=== PATIENT | male | born 1955 | race Caucasian/White ===

== ENCOUNTER → 2016-12-19 09:30 | Outpatient (CLI) | payer MEDICARE, OTHER ==
[2011-12-11 14:37] VITALS: BMI 27.9
== END | disposition home or self-care (01) ==
LOC: D.RAD 09:30
DX: K21.9 Gastro-esophageal reflux disease without esophagitis (principal); R13.10 Dysphagia, unspecified

== ENCOUNTER → 2017-03-17 08:54 | Outpatient (CLI) | payer MEDICARE, OTHER ==
[2011-12-11 14:37] VITALS: BMI 27.9
== END | disposition home or self-care (01) ==
LOC: D.CT 08:54
DX: R10.9 Unspecified abdominal pain (principal)

== ENCOUNTER → 2017-08-24 12:39 | Outpatient (CLI) | payer MEDICARE, OTHER ==
[2011-12-11 14:37] VITALS: BMI 27.9
[2017-08-24 13:23] LABS: BASOPHILS 0.4 % (0-2); EOSINOPHILS 1.1 % (0-7); HEMATOCRIT 40.6 % (42.0-54.0); HEMOGLOBIN 14.2 g/dL (13.5-17.5); IMMATURE GRANULOCYTES 0.2 % (0-5); LYMPHOCYTES 36.2 % (15-50); MCH 31.3 pg (26.0-34.0); MCV 89.4 fL (80.0-100.0); MEAN PLATELET VOLUME 9.5 fL (7.4-10.4); MONOCYTES 10.8 % (2-11); NEUTROPHILS 51.3 % (40-80); PLATELET COUNT 178 10x3/uL (130-400); RBC 4.54 10x6/uL (4.20-6.10); RDW 13.1 % (11.5-14.5); WBC 5.5 10x3/uL (4.8-10.8)
== END | disposition home or self-care (01) ==
LOC: D.RT 12:39
PROVIDERS: Orthopaedic Surgery
DX: Z01.812 Encounter for preprocedural laboratory examination (principal)

== ENCOUNTER → 2017-09-14 14:08 | Outpatient (CLI) | payer MEDICARE, OTHER ==
[2011-12-11 14:37] VITALS: BMI 27.9
== END | disposition home or self-care (01) ==
LOC: D.MRI 14:08
DX: M54.16 Radiculopathy, lumbar region (principal)

== ENCOUNTER → 2017-09-16 08:12 | Outpatient (CLI) | payer MEDICARE, OTHER ==
[2011-12-11 14:37] VITALS: BMI 27.9
[2017-09-16 09:18] LABS: ALBUMIN 3.7 g/dL (3.4-5.0); BILIRUBIN - DIRECT 0.06 mg/dL (0.00-0.30); BILIRUBIN - INDIRECT 0.29 mg/dL (0.00-1.00); BILIRUBIN - TOTAL 0.35 mg/dL (0.2-1.3); PROTEIN - SERUM 7.1 g/dL (6.4-8.2)
== END | disposition home or self-care (01) ==
LOC: D.US 08:12
PROVIDERS: Internal Medicine Gastroenterology
DX: K76.0 Fatty (change of) liver, not elsewhere classified (principal)

== ENCOUNTER 2017-10-30 10:14 | Emergency (ER) | payer MEDICARE, OTHER ==
[2011-12-11 14:37] VITALS: BMI 27.9
== END 2017-10-30 11:17 | disposition home or self-care (01) ==
LOC: D.ER 10:14
DX: S89.92XA Unspecified injury of left lower leg, initial encounter (principal); W19.XXXA Unspecified fall, initial encounter; Y93.89 Activity, other specified; Y92.019 Unspecified place in single-family (private) house as the place of occurrence of the external cause

== ENCOUNTER 2018-03-01 07:07 | Day surgery (SDC) | payer MEDICARE, OTHER ==
[~2018-03-01] VITALS: Ht 180.3 cm; Wt 99.8 kg
--- NOTE | ~2018-03-01 | OP ---
PATIENT NAME: LILIBETH JAIMES MEDICAL RECORD: [id number] :57 LOCATION:[facility] ADMISSION DATE: SURGEON: LILIBETH ABURTO MD DATE OF OPERATION: 03/01/2018 PREOPERATIVE DIAGNOSIS: Complex medial meniscus tear of the left knee. POSTOPERATIVE DIAGNOSIS: Complex medial meniscus tear of the left knee. PROCEDURE: Medial meniscal repair of the left knee. SURGEON: Lilibeth Aburto MD ANESTHESIA: General. INTRAOPERATIVE COMPLICATIONS: None. 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 There was early extrusion of the meniscus. This was repaired back to the root on the posterolateral aspect of the medial tibial plateau. OPERATIVE SUMMARY IN DETAIL: After obtaining the appropriate preoperative orthopedic surgery consent as well as anesthesia consultation, evaluation, and clearance, the patient was brought to the operating room and placed on the operating table in supine position. After general laryngeal mask airway was administered, tourniquet was placed on the proximal aspect of the left lower extremity. Left lower extremity was then prepped and draped in routine sterile fashion. The leg was elevated and exsanguinated and the tourniquet was inflated to 350 mmHg. Routine inferolateral portal was established followed by superomedial and inferomedial portal. Diagnostic arthroscopy did reveal the above findings. Portions of tears more medially were trimmed back with the meniscotome and resector. At this point, the reverse cutting drill was used with the meniscal root repair guide to create a socket at the posterior lateral aspect of the medial tibial plateau. Nitinol wire was then passed through this and out the PassPort cannula for later shuttle relaying. At this point, the meniscal Scorpion was utilized to pass a coreless FiberLoop on the edge of the meniscal root. This was then passed using the nitinol passing wire out the very small tibial tunnel, which was then anchored with a 4.75 SwiveLock in the anterior medial aspect of the tibial plateau. Having completed this, the knee was insufflated with 30 cc of 0.25% Marcaine with epinephrine and 80 mg of Depo-Medrol. Arthroscopy portals closed in routine interrupted fashion using 4-0 Prolene. Sterile dressings were applied. The patient was awakened, taken to recovery in stable condition. All final needle and sponge counts were correct. TRANSINT:[id number] Voice Confirmation ID: [id number] DOCUMENT ID: [id number] OPERATIVE REPORT [id number] LILIBETH JAIMES MD, LILIBETH ELLIS at 1657 CC: [id number] DICTATION DATE: 03/01/18 1124 MEDICAL TRANSPORT SPECIALIST: 03/01/18 1258 [facility] SDC 03/01/18 [place] [id number]
[~2018-03-01 07:07] MED LIST: PROTONIX40 MG PO
[2018-03-01 08:05] VITALS: BP 151/86; Ht 180.3 cm; Wt 99.8 kg
[2018-03-01] MEDS ORDERED: HYDROCODONE-APA1 TAB PO (11:18)
== END 2018-03-01 14:23 | disposition home or self-care (01) ==
LOC: D.OPS 07:07 → D.PAN 09:00 → D.OPS 09:35 → D.PAN 12:30 → D.OPS 12:30
DX: S83.232A Complex tear of medial meniscus, current injury, left knee, initial encounter (principal); K21.9 Gastro-esophageal reflux disease without esophagitis; M25.562 Pain in left knee; Z01.812 Encounter for preprocedural laboratory examination

== ENCOUNTER 2018-03-04 20:11 | Emergency (ER) | payer MEDICARE, OTHER ==
[2018-03-01 08:05] VITALS: BMI 30.7
[~2018-03-04 20:11] MED LIST changes: +HYDROCODONE-APA1 TAB PO
== END 2018-03-04 22:39 | disposition home or self-care (01) ==
LOC: D.ER 20:11
DX: K59.00 Constipation, unspecified (principal); T50.905A Adverse effect of unspecified drugs, medicaments and biological substances, initial encounter; Y92.019 Unspecified place in single-family (private) house as the place of occurrence of the external cause

== ENCOUNTER → 2018-04-02 08:12 | Outpatient (CLI) | payer MEDICARE, OTHER ==
[2018-03-01 08:05] VITALS: BMI 30.7
== END | disposition home or self-care (01) ==
LOC: D.US 03-16 09:00 → D.LAB 03-16 09:30 → D.US 08:12
DX: K76.0 Fatty (change of) liver, not elsewhere classified (principal)

== ENCOUNTER → 2018-08-12 10:07 | Outpatient (CLI) | payer MEDICARE, OTHER ==
[2018-03-01 08:05] VITALS: BMI 30.7
== END | disposition home or self-care (01) ==
LOC: D.MRI 10:07
DX: M25.562 Pain in left knee (principal)

== ENCOUNTER 2018-10-20 12:52 | Inpatient (IN) | payer MEDICARE, OTHER ==
[~2018-10-20] VITALS: Ht 180.3 cm; Wt 95.9 kg
--- NOTE | ~2018-10-20 | MORECARE ---
CASE MANAGEMENT DISCHARGE SUMMARY PATIENT: LILIBETH JAIMES UNIT: [id number] ADM DATE: 10/21/18 AGE: 63 : 57 SEX: M ROOM/BED: D.2210 AUTHOR: MIO,DOC PHYSICIAN: REFERRING PHYSICIAN: VICK LAWS MD DATE OF SERVICE: 10/25/18 Discharge Plan Patient Name: LILIBETH JAIMES Facility: [facility]:[place] : 1955 Planned Disposition: Home Anticipated Discharge Date: Discharge Date: Expected LOS: Initial Reviewer: [email or web address] Initial Review Date: 10/20/2018 Generated: 10/25/18 3:43 pm Comments DCP- Discharge Planning Updated by [email or web address]: Fay Viera on 10/25/18 1:[address] Patient Name: LILIBETH JAIMES Admission Status: ER Accout number: [id number] Admission Date: 10-21-2018 : 1955 Admission Diagnosis:UNSP FRACTURE OF T11-T12 VERTEBRA, INIT FOR CLOS FX Attending: VICK LAWS Current LOS: 4 Anticipated DC Date: Planned Disposition: Home Primary Insurance: MEDICARE A & B Discharge Planning Comments: CM met with patient to assess discharge planning needs. Patient lives independently at home with his and plans to return there when he is discharged, He has a walker, wheelchair, crutchers, shower chair at home. His Abiodun will be the one to take him home when it is time. There is 8 steps in his home. CM will continue to follow and assist with DC planning needs Wet Finisher: Fay Viera DCPIA - Discharge Planning Initial Assessment Updated by [email or web address]: Fay Viera on 10/25/18 2:35 pm * Is the patient Alert and Oriented? Yes * How many steps to enter\exit or inside your home? * PCP CHE * [facility] * Preadmission Environment Home with Family * ADLs Independent * Equipment Crutch Rolling Walker Shower Chair Walker Wheelchair * List name and contact numbers for known caregivers / representatives who currently or will assist patient after discharge: ABIODUN [phone] * Verbal permission to speak to the caregivers and representatives has been obtained from the patient. N/A * Community resources currently utilized None * Additional services required to return to the preadmission environment? Yes * Can the patient safely return to the preadmission environment? Yes * Has this patient been hospitalized within the prior 30 days at any hospital? No Last DP export: 10/25/18 1:32 Patient Name: LILIBETH JAIMES Page 72701 at 1443 All edits/amendments must be made on the electronic document DICTATION DATE: 10/25/181442 CHURCH HISTORY PROFESSOR: JESSICA 10/25/181442 RPT#: [id number] DC DATE: STATUS: ADM IN [facility] [address] [place] [address] END OF REPORT
--- NOTE | ~2018-10-20 | EC ---
PATIENT:LILIBETH JAIMES DATE OF SERVICE: 10/21/18 SEX: M MEDICAL RECORD: [id number] DATE OF : 57 LOCATION:D.[facility] AGE OF PATIENT: 63 ADMISSION DATE: 10/21/18 REFERRING PHYSICIAN: INTERPRETING PHYSICIAN: ANNA LILLY MD ECHOCARDIOGRAM REPORT ECHO CHARGES 4 ECHO COMPLETE Date: 10/26/18 CLINICAL DIAGNOSIS: DVT/PE INTO LUNGS ECHOCARDIOGRAPHIC MEASUREMENTS (adult normal given) AC root (d.<3.7cm) 4.2 cm LV Septum d (<1.2 cm> 1.9 cm Valve Excursion 2.3 cm LV Septum (systole) 2.0 cm Left Atria (s.<4.0cm> 4.0 cm LVPW d(<1.2cm) 1.5 cm RV (d.<2.3cm) 3.9 cm LVPW (sytole) 2.0 cm LV diastole(<5.6CM) 5.1 cm MV E-F(>70mm/sec) cm LV systole 3.7 cm LVOT Diameter 2.1 cm MV exc.(>10mm) 2.1 cm Est.ejection fraction (50-75%) % DOPPLER: LVIT cm/sec A 97.0 cm/sec E 70.0 cm/sec LA cm/sec RVSP 15 mmHg LVOT 101 cm/sec AOP1/2T m/s Asc. Ao 159 cm/sec RVOT 99 cm/sec RA cm/sec PA 121 cm/sec AV Gradient Peak 10.06mmHg AV Mean 5.61 mmHg AV Area 2.1 cm MV Gradient Peak 5.60 mmHg MV Mean 1.53 mmHg MV Area cm COMMENTS: Coal Passer: 2 ALEXUS JIMENEZ Longwall Machine Operator Helper: 1 Dr. Lilly TAPE# PACS Pericardial Effusion N DATE OF SERVICE: FINDINGS: 1. Left ventricular chamber size is within normal limits. Left ventricular systolic function is normal. Overall ejection fraction is estimated at 55%. 2. Left atrium is upper limits of normal at 4.0 cm. Right atrium and right ventricle chamber sizes are mildly dilated. 3. Valvular structures have normal structure and motion. 4. Doppler interrogation reveals no significant valvular insufficiency or stenosis. ECHOCARDIOGRAM REPORT [id number] LILIBETH JAIMES 5. No evidence of pericardial effusion or left ventricular thrombus. 6. No cardiac source of neurologic emboli. TRANSINT:[id number] Voice Confirmation ID: [id number] DOCUMENT ID: [id number] ANNA LILLY MD at 1228 CC: [id number] DICTATION DATE: 10/26/18 1630 TOWER HELPER: 10/26/18 191 ADM IN [facility] [address] [place] [address]
--- NOTE | ~2018-10-20 | MORECARE ---
CASE MANAGEMENT DISCHARGE SUMMARY PATIENT: LILIBETH JAIMES UNIT: [id number] ADM DATE: 10/21/18 AGE: 63 : 57 SEX: M ROOM/BED: D.2210 AUTHOR: ALIYAH LIEBERMAN PHYSICIAN: REFERRING PHYSICIAN: VICK LAWS MD DATE OF SERVICE: 10/28/18 Discharge Plan Patient Name: LILIBETH JAIMES Facility: [facility]:[place] : 1955 Planned Disposition: Home Anticipated Discharge Date: Discharge Date: Expected LOS: Initial Reviewer: [email or web address] Initial Review Date: 10/20/2018 Generated: 10/28/18 5:10 pm Comments DCP- Discharge Planning Updated by [email or web address]: Fay Viera on 10/28/18 1:[address] Spoke with Catie at [facility], she will start the process to try to transfer. DCP- Discharge Planning Updated by [email or web address]: Fay Viera on 10/25/18 1:[address] Patient Name: LILIBETH JAIMES Admission Status: ER Accout number: [id number] Admission Date: 10-21-2018 : 1955 Admission Diagnosis:UNSP FRACTURE OF T11-T12 VERTEBRA, INIT FOR CLOS FX Attending: VICK LAWS Current LOS: 4 Anticipated DC Date: Planned Disposition: Home Primary Insurance: MEDICARE A & B Discharge Planning Comments: CM met with patient to assess discharge planning needs. Patient lives independently at home with his and plans to return there when he is discharged, He has a walker, wheelchair, crutchers, shower chair at home. His Abiodun will be the one to take him home when it is time. There is 8 steps in his home. CM will continue to follow and assist with DC planning needs V Belt Coverer: Fay Viera DCPIA - Discharge Planning Initial Assessment Updated by [email or web address]: Fay Viera on 10/25/18 2:35 pm * Is the patient Alert and Oriented? Yes * How many steps to enter\exit or inside your home? * PCP CHE * Pharmacy [facility] * Preadmission Environment Home with Family * ADLs Independent * Equipment Crutch Rolling Walker Shower Chair Walker Wheelchair * List name and contact numbers for known caregivers / representatives who currently or will assist patient after discharge: ABIODUN [phone] * Verbal permission to speak to the caregivers and representatives has been obtained from the patient. N/A * Community resources currently utilized None * Additional services required to return to the preadmission environment? Yes * Can the patient safely return to the preadmission environment? Yes * Has this patient been hospitalized within the prior 30 days at any hospital? No Last DP export: 10/28/18 1:14 Patient Name: LILIBETH JAIMES Page [id number] at 1611 All edits/amendments must be made on the electronic document DICTATION DATE: 10/28/181609 CLOTH BURLER: JESSICA 10/28/181609 RPT#: [id number] DC DATE: STATUS: ADM IN [facility] [address] [place] [address] END OF REPORT
--- NOTE | ~2018-10-20 | MORECARE ---
CASE MANAGEMENT DISCHARGE SUMMARY PATIENT: LILIBETH JAIMES UNIT: [id number] ADM DATE: 10/21/18 AGE: 63 : 57 SEX: M ROOM/BED: D.2210 AUTHOR: ALIYAH LIEBERMAN PHYSICIAN: REFERRING PHYSICIAN: VICK LAWS MD DATE OF SERVICE: 10/25/18 Discharge Plan Patient Name: LILIBETH JAIMES [facility] [facility] 1955 Planned Disposition: Home Anticipated Discharge Date: Discharge Date: Expected LOS: Initial Reviewer: [email or web address] Initial Review Date: 10/20/2018 Generated: 10/25/18 3:32 pm Last DP export: 10/20/18 1:51 p Patient Name: LILIBETH JAIMES Page 88361 at 1432 All edits/amendments must be made on the electronic document DICTATION DATE: 10/25/18 143 CHIEF TECHNOLOGIST: JESSICA 10/25/18 143 RPT#: [id number] DC DATE: STATUS: ADM IN [facility] [address] [place] [address] END OF REPORT
--- NOTE | ~2018-10-20 | MORECARE ---
CASE MANAGEMENT DISCHARGE SUMMARY PATIENT: LILIBETH JAIMES DUTCH UNIT: [id number] ADM DATE: 10/20/18 AGE: 63 : 57 SEX: M ROOM/BED: D.2210 AUTHOR: ALIYAH LIEBERMAN PHYSICIAN: REFERRING PHYSICIAN: VICK LAWS MD DATE OF SERVICE: 10/20/18 Discharge Plan Patient Name: LILIBETH JAIMES [facility] : 1955 Planned Disposition: Anticipated Discharge Date: Discharge Date: Expected LOS: Initial Reviewer: [email or web address] Initial Review Date: 10/20/2018 Generated: 10/20/18 3:51 pm Patient Name: LILIBETH JAIMES Page 26539 at 1451 All edits/amendments must be made on the electronic document DICTATION DATE: 10/20/181450 ADDRESS CHANGE CLERK: JESSICA 10/20/18 145 RPT#: [id number] DC DATE: STATUS: ADM IN [facility] [address] [place] [address] END OF REPORT
--- NOTE | ~2018-10-20 | MORECARE ---
CASE MANAGEMENT DISCHARGE SUMMARY PATIENT: LILIBETH JAIMES UNIT: [id number] ADM DATE: 10/21/18 AGE: 63 : 57 SEX: M ROOM/BED: D.2210 AUTHOR: ALIYAH LIEBERMAN PHYSICIAN: REFERRING PHYSICIAN: VICK LAWS MD DATE OF SERVICE: 10/29/18 Discharge Plan Patient Name: LILIBETH JAIMES Facility: [facility]:[place] : 1955 Planned Disposition: Home Anticipated Discharge Date: Discharge Date: Expected LOS: Initial Reviewer: [email or web address] Initial Review Date: 10/20/2018 Generated: 10/29/18 3:57 pm Comments DCP- Discharge Planning Updated by [email or web address]: Fay Viera on 10/29/18 1:[address] Finney, the patient has been accepted to [facility]. Dr Don is the accepting MD. [facility] served. CM will continue to follow and assist with DC planning as needed. at bedside DCP- Discharge Planning Updated by [email or web address]: Fay Viera on 10/29/18 6:[address] RECEIVED A MESSAGE FROM CATIE AT THE TRANSFER CENTER AND SHE STATED THAT THEY HAD AN ACCEPTING PHYSICAN, BUT NOT A BED. SHE WILL LET ME KNOW WHEN THERE IS A BED AVAILABLE. INFORMED PATIENT OF ABOVE. CM TO FOLLOW DCP- Discharge Planning Updated by [email or web address]: Fay Viera on 10/28/18 1:[address] Spoke with Catie at [facility], she will start the process to try to transfer. DCP- Discharge Planning Updated by [email or web address]: Fay Viera on 10/25/18 1:[address] Patient Name: LILIBETH JAIMES Admission Status: ER Accout number: [id number] Admission Date: 10-21-2018 : 1955 Admission Diagnosis:UNSP FRACTURE OF T11-T12 VERTEBRA, INIT FOR CLOS FX Attending: VICK LAWS Current LOS: 4 Anticipated DC Date: Planned Disposition: Home Primary Insurance: MEDICARE A & B Discharge Planning Comments: CM met with patient to assess discharge planning needs. Patient lives independently at home with his and plans to return there when he is discharged, He has a walker, wheelchair, crutchers, shower chair at home. His Abiodun will be the one to take him home when it is time. There is 8 steps in his home. CM will continue to follow and assist with DC planning needs Culture Media Laboratory Assistant: Fay Viera DCPIA - Discharge Planning Initial Assessment Updated by [email or web address]: Fay Viera on 10/25/18 2:35 pm * Is the patient Alert and Oriented? Yes * How many steps to enter\exit or inside your home? * PCP CHE * Pharmacy [facility] * Preadmission Environment Home with Family * ADLs Independent * Equipment Crutch Rolling Walker Shower Chair Walker Wheelchair * List name and contact numbers for known caregivers / representatives who currently or will assist patient after discharge: ABIODUN [phone] * Verbal permission to speak to the caregivers and representatives has been obtained from the patient. N/A * Community resources currently utilized None * Additional services required to return to the preadmission environment? Yes * Can the patient safely return to the preadmission environment? Yes * Has this patient been hospitalized within the prior 30 days at any hospital? No Last DP export: 10/29/18 6:41 Patient Name: LILIBETH JAIMES Page 53418 at 1458 All edits/amendments must be made on the electronic document DICTATION DATE: 10/29/181456 SNOW RANGER: JESSICA 10/29/181456 RPT#: [id number] DC DATE: STATUS: ADM IN [facility] [address] [place] [address] END OF REPORT
--- NOTE | ~2018-10-20 | MORECARE ---
CASE MANAGEMENT DISCHARGE SUMMARY PATIENT: LILIBETH JAIMES UNIT: [id number] ADM DATE: 10/21/18 AGE: 63 : 57 SEX: M ROOM/BED: D.2210 AUTHOR: MIO,DOC PHYSICIAN: REFERRING PHYSICIAN: VICK LAWS MD DATE OF SERVICE: 11/01/18 Discharge Plan Patient Name: LILIBETH JAIMES Facility: [facility]:[place] : 1955 Planned Disposition: Home Anticipated Discharge Date: Discharge Date: 10/29/2018 Expected LOS: 0 Initial Reviewer: [email or web address] Initial Review Date: 10/20/2018 Generated: 11/01/18 4:00 pm Comments DCP- Discharge Planning Updated by [email or web address]: Fay Viera on 10/29/18 1:[address] Finney, the patient has been accepted to [facility]. Dr Don is the accepting MD. [facility] served. CM will continue to follow and assist with DC planning as needed. at bedside DCP- Discharge Planning Updated by [email or web address]: Fay Viera on 10/29/18 6:[address] RECEIVED A MESSAGE FROM CATIE AT THE TRANSFER CENTER AND SHE STATED THAT THEY HAD AN ACCEPTING PHYSICAN, BUT NOT A BED. SHE WILL LET ME KNOW WHEN THERE IS A BED AVAILABLE. INFORMED PATIENT OF ABOVE. CM TO FOLLOW DCP- Discharge Planning Updated by [id number]: Fay Viera on 10/28/18 1:[address] Spoke with Catie at [facility], she will start the process to try to transfer. DCP- Discharge Planning Updated by [email or web address]: Fay Viera on 10/25/18 1:[address] Patient Name: LILIBETH JAIMES Admission Status: ER Accout number: [id number] Admission Date: 10-21-2018 : 1955 Admission Diagnosis:UNSP FRACTURE OF T11-T12 VERTEBRA, INIT FOR CLOS FX Attending: VICK LAWS Current LOS: 4 Anticipated DC Date: Planned Disposition: Home Primary Insurance: MEDICARE A & B Discharge Planning Comments: CM met with patient to assess discharge planning needs. Patient lives independently at home with his and plans to return there when he is discharged, He has a walker, wheelchair, crutchers, shower chair at home. His Abiodun will be the one to take him home when it is time. There is 8 steps in his home. CM will continue to follow and assist with DC planning needs Driver Sales: Fay Viera DCPIA - Discharge Planning Initial Assessment Updated by [email or web address]: Fay Viera on 10/25/18 2:35 pm * Is the patient Alert and Oriented? Yes * How many steps to enter\exit or inside your home? * PCP CHE * Pharmacy [facility] * Preadmission Environment Home with Family * ADLs Independent * Equipment Crutch Rolling Walker Shower Chair Walker Wheelchair * List name and contact numbers for known caregivers / representatives who currently or will assist patient after discharge: ABIODUN [phone] * Verbal permission to speak to the caregivers and representatives has been obtained from the patient. N/A * Community resources currently utilized None * Additional services required to return to the preadmission environment? Yes * Can the patient safely return to the preadmission environment? Yes * Has this patient been hospitalized within the prior 30 days at any hospital? No Coverage Notice Reviewer: [email or web address] - Fay Viera Notice Issued Date-Time: 10/29/2018 14:45 Notice Type: IM Discharge Notice Notice Delivered To: Patient Relationship to Patient: Spouse Mixed Livestock Farmer Name: abiodun Delivery Method: HAND - Hand Delivered Celina Days: Prior Verbal Notification: Recipient Understood Notice: Yes Recipient Signature: Yes Med Rec Note Co-signed by Attending: Coverage Notice Comment: Last DP export: 10/29/18 1:57 Patient Name: LILIBETH JAIMES Page 65148 at 1500 All edits/amendments must be made on the electronic document DICTATION DATE: 11/01/181458 DIRECTOR OF BUSINESS SERVICES: JESSICA 11/01/181458 RPT#: [id number] DC DATE:10/29/18 STATUS: DIS IN [facility] [address] [place] [address] END OF REPORT
--- NOTE | ~2018-10-20 | EC ---
PATIENT:LILIBETH JAIMES DATE OF SERVICE: 10/21/18 SEX: M MEDICAL RECORD: [id number] DATE OF : 57 LOCATION:D.[facility] [place] AGE OF PATIENT: 63 ADMISSION DATE: 10/21/18 REFERRING PHYSICIAN: INTERPRETING PHYSICIAN: ANNA LILLY MD ECHOCARDIOGRAM REPORT ECHO CHARGES 5 ECHO LIMITED Date: 10/29/18 CLINICAL DIAGNOSIS: REASSESS FOR VEGATATION ECHOCARDIOGRAPHIC MEASUREMENTS (adult normal given) AC root (d.<3.7cm) 4.2 cm LV Septum d (<1.2 cm> 1.9 cm Valve Excursion 2.3 cm LV Septum (systole) 2.0 cm Left Atria (s.<4.0cm> 4.0 cm LVPW d(<1.2cm) 1.5 cm RV (d.<2.3cm) 3.9 cm LVPW (sytole) 2.0 cm LV diastole(<5.6CM) 5.1 cm MV E-F(>70mm/sec) cm LV systole 3.7 cm LVOT Diameter 2.1 cm MV exc.(>10mm) 2.1 cm Est.ejection fraction (50-75%) % DOPPLER: LVIT cm/sec A 97.0 cm/sec E 70.0 cm/sec LA cm/sec RVSP 15 mmHg LVOT 101 cm/sec AOP1/2T m/s Asc. Ao 159 cm/sec RVOT 99 cm/sec RA cm/sec PA 121 cm/sec AV Gradient Peak 10.06mmHg AV Mean 5.61 mmHg AV Area 2.1 cm MV Gradient Peak 5.60 mmHg MV Mean 1.53 mmHg MV Area cm COMMENTS: Criminal Intelligence Analyst: 2 ALEXUS JIMENEZ Breaker Off: 1 Dr. Lilly TAPE# PACS Pericardial Effusion N DATE OF SERVICE: 10/29/2018 PROCEDURE: Limited echocardiogram. REASON FOR STUDY: For evaluation of valvular structures and possible endocarditis. FINDINGS: No evidence of valvular endocarditis. Valvular structures have normal structure and motion. ECHOCARDIOGRAM REPORT [id number] LILIBETH JAIMES TRANSINT:[id number] Voice Confirmation ID: [id number] DOCUMENT ID: [id number] ANNA LILLY MD CC: [id number] DICTATION DATE: 10/29/18 1348 PODIATRY DOCTOR: 10/29/18 1536 ADM IN [facility] [address] [place] [address]
--- NOTE | ~2018-10-20 | MORECARE ---
CASE MANAGEMENT DISCHARGE SUMMARY PATIENT: LILIBETH JAIMES UNIT: [id number] ADM DATE: 10/21/18 AGE: 63 : 57 SEX: M ROOM/BED: D.2210 AUTHOR: ALIYAH LIEBERMAN PHYSICIAN: REFERRING PHYSICIAN: VICK LAWS MD DATE OF SERVICE: 10/29/18 Discharge Plan Patient Name: LILIBETH JAIMES Facility: [facility]:[place] : 1955 Planned Disposition: Home Anticipated Discharge Date: Discharge Date: Expected LOS: Initial Reviewer: [email or web address] Initial Review Date: 10/20/2018 Generated: 10/29/18 8:41 am Comments DCP- Discharge Planning Updated by [email or web address]: Fay Viera on 10/29/18 6:[address] RECEIVED A MESSAGE FROM CATIE AT THE TRANSFER CENTER AND SHE STATED THAT THEY HAD AN ACCEPTING PHYSICAN, BUT NOT A BED. SHE WILL LET ME KNOW WHEN THERE IS A BED AVAILABLE. INFORMED PATIENT OF ABOVE. CM TO FOLLOW DCP- Discharge Planning Updated by [email or web address]: Fay Viera on 10/28/18 1:[address] Spoke with Catie at [facility], she will start the process to try to transfer. DCP- Discharge Planning Updated by [id number]: Fay Viera on 10/25/18 1:[address] Patient Name: LILIBETH JAIMES Admission Status: ER Accout number: [id number] Admission Date: 10-21-2018 : 1955 Admission Diagnosis:UNSP FRACTURE OF T11-T12 VERTEBRA, INIT FOR CLOS FX Attending: VICK LAWS Current LOS: 4 Anticipated DC Date: Planned Disposition: Home Primary Insurance: MEDICARE A & B Discharge Planning Comments: CM met with patient to assess discharge planning needs. Patient lives independently at home with his and plans to return there when he is discharged, He has a walker, wheelchair, crutchers, shower chair at home. His Abiodun will be the one to take him home when it is time. There is 8 steps in his home. CM will continue to follow and assist with DC planning needs Nascar Driver: Fay Viera DCPIA - Discharge Planning Initial Assessment Updated by [email or web address]: Fay Viera on 10/25/18 2:35 pm * Is the patient Alert and Oriented? Yes * How many steps to enter\exit or inside your home? * PCP CHE * Pharmacy [facility] * Preadmission Environment Home with Family * ADLs Independent * Equipment Crutch Rolling Walker Shower Chair Walker Wheelchair * List name and contact numbers for known caregivers / representatives who currently or will assist patient after discharge: ABIODUN [phone] * Verbal permission to speak to the caregivers and representatives has been obtained from the patient. N/A * Community resources currently utilized None * Additional services required to return to the preadmission environment? Yes * Can the patient safely return to the preadmission environment? Yes * Has this patient been hospitalized within the prior 30 days at any hospital? No Last DP export: 10/28/18 3:11 Patient Name: LILIBETH JAIMES Page 40758 at 0741 All edits/amendments must be made on the electronic document DICTATION DATE: 10/29/18740 WELDING MACHINE OPERATOR HELPER ARC: JESSICA 10/29/18740 RPT#: [id number] DC DATE: STATUS: ADM IN [facility] [address] [place] [address] END OF REPORT
--- NOTE | ~2018-10-20 | MORECARE ---
CASE MANAGEMENT DISCHARGE SUMMARY PATIENT: LILIBETH JAIMES UNIT: [id number] ADM DATE: 10/21/18 AGE: 63 : 57 SEX: M ROOM/BED: D.2210 AUTHOR: ALIYAH LIEBERMAN PHYSICIAN: REFERRING PHYSICIAN: VICK LAWS MD DATE OF SERVICE: 10/28/18 Discharge Plan Patient Name: LILIBETH JAIMES Facility: [facility]:[place] : 1955 Planned Disposition: Home Anticipated Discharge Date: Discharge Date: Expected LOS: Initial Reviewer: [email or web address] Initial Review Date: 10/20/2018 Generated: 10/28/18 3:14 pm Comments DCP- Discharge Planning Updated by [email or web address]: Fay Viera on 10/28/18 1:[address] Spoke with Catie at [facility], she will start the process to try to transfer. DCP- Discharge Planning Updated by [email or web address]: Fay Viera on 10/25/18 1:[address] Patient Name: LILIBETH JAIMES Admission Status: ER Accout number: [id number] Admission Date: 10-21-2018 : 1955 Admission Diagnosis:UNSP FRACTURE OF T11-T12 [place], INIT FOR CLOS FX Attending: VICK LAWS Current LOS: 4 Anticipated DC Date: Planned Disposition: Home Primary Insurance: MEDICARE A & B Discharge Planning Comments: CM met with patient to assess discharge planning needs. Patient lives independently at home with his and plans to return there when he is discharged, He has a walker, wheelchair, crutchers, shower chair at home. His Abiodun will be the one to take him home when it is time. There is 8 steps in his home. CM will continue to follow and assist with DC planning needs Lead Burner Helper: Fay Viera DCPIA - Discharge Planning Initial Assessment Updated by [email or web address]: Fay Viera on 10/25/18 2:35 pm * Is the patient Alert and Oriented? Yes * How many steps to enter\exit or inside your home? * PCP CHE * Pharm[facility] * Preadmission Environment Home with Family * ADLs Independent * Equipment Crutch Rolling Walker Shower Chair Walker Wheelchair * List name and contact numbers for known caregivers / representatives who currently or will assist patient after discharge: [email or web address] [phone] * Verbal permission to speak to the caregivers and representatives has been obtained from the patient. N/A * Community resources currently utilized None * Additional services required to return to the preadmission environment? Yes * Can the patient safely return to the preadmission environment? Yes * Has this patient been hospitalized within the prior 30 days at any hospital? No Last DP export: 10/25/18 1:43 Patient Name: LILIBETH JAIMES Page [id number] at 1414 All edits/amendments must be made on the electronic document DICTATION DATE: 10/28/181413 BACKUP ENGINEER: JESSICA 10/28/181413 RPT#: [id number] DC DATE: STATUS: ADM IN [facility] [address] [place] [address] END OF REPORT
[2018-10-20 13:01] VITALS: BP 134/77
[2018-10-20 13:21] VITALS: BP 121/45
[2018-10-20] MEDS ORDERED: TUMS X-STR300 MG PO (16:05)
[2018-10-20 16:06] VITALS: BP 124/73; BMI 29.5
[2018-10-20 20:00] VITALS: BP 120/74
[2018-10-21 04:53] LABS: BASOPHILS 0.1 % (0-2); EOSINOPHILS 0.3 % (0-7); HEMOGLOBIN 13.2 g/dL (13.5-17.5); IMMATURE GRANULOCYTES 0.4 % (0-5); LYMPHOCYTES 17.5 % (15-50); MCH 31.3 pg (26.0-34.0); MCHC 33.8 g/dL (31.0-37.0); MCV 92.4 fL (80.0-100.0); MEAN PLATELET VOLUME 9.7 fL (7.4-10.4); MONOCYTES 9.3 % (2-11); NEUTROPHILS 72.4 % (40-80); PLATELET COUNT 166 10x3/uL (130-400); RBC 4.22 10x6/uL (4.20-6.10); RDW 13.4 % (11.5-14.5); WBC 7.8 10x3/uL (4.8-10.8)
[2018-10-21 05:17] LABS: CALC OSMOLALITY 283 mosm/kg (275-300); CALCIUM 8.4 mg/dL (8.5-10.1); CARBON DIOXIDE 27.1 mmol/L (21.0-32.0); CHLORIDE - SERUM 105 mmol/L (98-107); CREATININE - SERUM 0.9 mg/dL (0.6-1.3); GLUCOSE 108 mg/dL (74-106); POTASSIUM - SERUM 4.3 mmol/L (3.5-5.1); SODIUM 141 mmol/L (136-145); UREA NITROGEN 17 mg/dL (7-18); eGFR NON AFRICAN AMERICAN > 90 mL/min (90-120)
[2018-10-21 10:20] VITALS: BP 122/71
[2018-10-21] MEDS ORDERED: NORCO-7.5 PO (12:03)
[2018-10-21] MEDS ORDERED: BACTRIM DS1 TAB PO (12:04)
[2018-10-21] MEDS ORDERED: DOXYCYCLINE HY100 M2 PO (12:04)
[2018-10-21 12:34] VITALS: BP 120/75
[2018-10-21 20:00] VITALS: BP 127/73
[2018-10-22] VITALS: BP 133/71
[2018-10-22 04:00] VITALS: BP 140/79
[2018-10-22 06:11] LABS: BASOPHILS 0.1 % (0-2); CALC OSMOLALITY 277 mosm/kg (275-300); CALCIUM 9.1 mg/dL (8.5-10.1); CARBON DIOXIDE 27.7 mmol/L (21.0-32.0); CHLORIDE - SERUM 101 mmol/L (98-107); EOSINOPHILS 0.4 % (0-7); GLUCOSE 105 mg/dL (74-106); HEMATOCRIT 40.6 % (42.0-54.0); HEMOGLOBIN 13.8 g/dL (13.5-17.5); IMMATURE GRANULOCYTES 0.1 % (0-5); LYMPHOCYTES 16.9 % (15-50); MCH 31.3 pg (26.0-34.0); MCV 92.1 fL (80.0-100.0); MEAN PLATELET VOLUME 9.7 fL (7.4-10.4); MONOCYTES 10.3 % (2-11); NEUTROPHILS 72.2 % (40-80); PLATELET COUNT 174 10x3/uL (130-400); POTASSIUM - SERUM 4.1 mmol/L (3.5-5.1); RBC 4.41 10x6/uL (4.20-6.10); RDW 13.2 % (11.5-14.5); SODIUM 138 mmol/L (136-145); UREA NITROGEN 17 mg/dL (7-18); WBC 7.8 10x3/uL (4.8-10.8); eGFR NON AFRICAN AMERICAN 80 mL/min (90-120)
[2018-10-22 08:49] VITALS: BP 133/79
[2018-10-22 17:00] VITALS: BP 140/85
[2018-10-22 19:54] VITALS: BP 135/81
[2018-10-23] VITALS: BP 133/67
[2018-10-23 04:00] VITALS: BP 126/81
[2018-10-23 04:53] LABS: BASOPHILS 0.1 % (0-2); HEMATOCRIT 38.3 % (42.0-54.0); HEMOGLOBIN 13.1 g/dL (13.5-17.5); IMMATURE GRANULOCYTES 0.1 % (0-5); LYMPHOCYTES 23.5 % (15-50); MCH 31.4 pg (26.0-34.0); MCHC 34.2 g/dL (31.0-37.0); MCV 91.8 fL (80.0-100.0); MEAN PLATELET VOLUME 9.5 fL (7.4-10.4); MONOCYTES 10.6 % (2-11); NEUTROPHILS 63.7 % (40-80); PLATELET COUNT 162 10x3/uL (130-400); RBC 4.17 10x6/uL (4.20-6.10); RDW 13.2 % (11.5-14.5); WBC 6.9 10x3/uL (4.8-10.8)
[2018-10-23 04:57] LABS: CALC OSMOLALITY 272 mosm/kg (275-300); CALCIUM 8.9 mg/dL (8.5-10.1); CARBON DIOXIDE 29.9 mmol/L (21.0-32.0); CHLORIDE - SERUM 100 mmol/L (98-107); CREATININE - SERUM 0.9 mg/dL (0.6-1.3); GLUCOSE 91 mg/dL (74-106); POTASSIUM - SERUM 4.1 mmol/L (3.5-5.1); SODIUM 135 mmol/L (136-145); UREA NITROGEN 20 mg/dL (7-18); eGFR NON AFRICAN AMERICAN > 90 mL/min (90-120)
[2018-10-23 08:45] VITALS: BP 140/76
[2018-10-23 11:53] VITALS: BP 121/82
[2018-10-23 15:33] VITALS: BP 116/80
[2018-10-23 19:38] VITALS: BP 154/82
[2018-10-24] VITALS: BP 132/80; BP 145/71
[2018-10-24 04:00] VITALS: BP 109/79
[2018-10-24 06:10] LABS: BASOPHILS 0.1 % (0-2); EOSINOPHILS 1.3 % (0-7); HEMATOCRIT 39.1 % (42.0-54.0); HEMOGLOBIN 13.8 g/dL (13.5-17.5); IMMATURE GRANULOCYTES 0.3 % (0-5); LYMPHOCYTES 14.6 % (15-50); MCH 31.8 pg (26.0-34.0); MCHC 35.3 g/dL (31.0-37.0); MCV 90.1 fL (80.0-100.0); MEAN PLATELET VOLUME 9.7 fL (7.4-10.4); MONOCYTES 11.8 % (2-11); NEUTROPHILS 71.9 % (40-80); PLATELET COUNT 142 10x3/uL (130-400); RBC 4.34 10x6/uL (4.20-6.10); RDW 13.1 % (11.5-14.5); WBC 7.9 10x3/uL (4.8-10.8)
[2018-10-24 06:24] LABS: CALC OSMOLALITY 270 mosm/kg (275-300); CALCIUM 8.6 mg/dL (8.5-10.1); CARBON DIOXIDE 25.9 mmol/L (21.0-32.0); CHLORIDE - SERUM 97 mmol/L (98-107); CREATININE - SERUM 0.9 mg/dL (0.6-1.3); GLUCOSE 114 mg/dL (74-106); POTASSIUM - SERUM 4.2 mmol/L (3.5-5.1); SODIUM 133 mmol/L (136-145); UREA NITROGEN 23 mg/dL (7-18); eGFR NON AFRICAN AMERICAN > 90 mL/min (90-120)
[2018-10-24 08:26] VITALS: BP 131/73
[2018-10-24 11:57] VITALS: BP 120/71
[2018-10-24 15:13] VITALS: BP 119/79
[2018-10-24 20:21] VITALS: BP 130/81
[2018-10-25 03:55] LABS: BASOPHILS 0.2 % (0-2); EOSINOPHILS 0.9 % (0-7); HEMATOCRIT 40.7 % (42.0-54.0); HEMOGLOBIN 14.5 g/dL (13.5-17.5); IMMATURE GRANULOCYTES 0.3 % (0-5); LYMPHOCYTES 10.9 % (15-50); MCH 31.9 pg (26.0-34.0); MCHC 35.6 g/dL (31.0-37.0); MCV 89.6 fL (80.0-100.0); MEAN PLATELET VOLUME 9.8 fL (7.4-10.4); MONOCYTES 11.1 % (2-11); NEUTROPHILS 76.6 % (40-80); PLATELET COUNT 137 10x3/uL (130-400); RBC 4.54 10x6/uL (4.20-6.10); RDW 13.2 % (11.5-14.5)
[2018-10-25 03:56] LABS: WBC 11.5 10x3/uL (4.8-10.8)
[2018-10-25 04:01] LABS: CALC OSMOLALITY 270 mosm/kg (275-300); CALCIUM 8.7 mg/dL (8.5-10.1); CARBON DIOXIDE 27.1 mmol/L (21.0-32.0); CHLORIDE - SERUM 94 mmol/L (98-107); GLUCOSE 129 mg/dL (74-106); POTASSIUM - SERUM 4.4 mmol/L (3.5-5.1); SODIUM 131 mmol/L (136-145); UREA NITROGEN 28 mg/dL (7-18); eGFR NON AFRICAN AMERICAN 80 mL/min (90-120)
[2018-10-25 08:05] VITALS: BP 121/80
[2018-10-25 10:22] LABS: APPEARANCE CLEAR (CLEAR); BILIRUBIN NEGATIVE (NEGATIVE); COLOR YELLOW (YELLOW); GLUCOSE NEGATIVE (NEGATIVE); KETONE NEGATIVE (NEGATIVE); NITRITE NEGATIVE (NEGATIVE); PROTEIN 1+ mg/dL (NEGATIVE); SPECIFIC GRAVITY 1.025 (1.005-1.020); UROBILINOGEN NORMAL (NORMAL)
[2018-10-25 10:23] LABS: BACTERIA FEW /hpf (NONE SEEN); EPITHELIAL CELLS 0-5 /hpf (0-5); RED CELLS - URINE 0-5 /hpf (0-5); WHITE CELLS - URINE NSEEN /hpf (0-5)
[2018-10-25 12:10] VITALS: BP 126/75
[2018-10-25 15:18] VITALS: BP 138/82
[2018-10-25 17:26] VITALS: Ht 180.3 cm; Wt 95.9 kg
[2018-10-25 20:00] VITALS: BP 125/76
[2018-10-26] VITALS: BP 1147/82
[2018-10-26 05:27] LABS: BASOPHILS 0.2 % (0-2); EOSINOPHILS 1.3 % (0-7); HEMATOCRIT 43.2 % (42.0-54.0); HEMOGLOBIN 15.1 g/dL (13.5-17.5); IMMATURE GRANULOCYTES 0.8 % (0-5); LYMPHOCYTES 16.8 % (15-50); MCH 31.5 pg (26.0-34.0); MCV 90.2 fL (80.0-100.0); MONOCYTES 14.3 % (2-11); NEUTROPHILS 66.6 % (40-80); PLATELET COUNT 141 10x3/uL (130-400); RBC 4.79 10x6/uL (4.20-6.10); RDW 13.3 % (11.5-14.5)
[2018-10-26 06:02] LABS: ALBUMIN 3.3 g/dL (3.4-5.0); ANION GAP 14.5 mmol/L (8-16); BILIRUBIN - TOTAL 1.43 mg/dL (0.2-1.3); CARBON DIOXIDE 27.8 mmol/L (21.0-32.0); CREATININE - SERUM 1.1 mg/dL (0.6-1.3); POTASSIUM - SERUM 4.3 mmol/L (3.5-5.1); PROTEIN - SERUM 8.1 g/dL (6.4-8.2)
[2018-10-26 06:41] VITALS: BP 149/94
[2018-10-26 08:07] VITALS: BP 117/68
[2018-10-26 12:45] VITALS: BP 146/71
[2018-10-26 16:40] VITALS: BP 159/91
[2018-10-26 20:00] VITALS: BP 136/74
[2018-10-27 00:40] VITALS: BP 123/79
[2018-10-27 04:12] VITALS: BP 124/77
[2018-10-27 04:28] LABS: BASOPHILS 0.3 % (0-2); EOSINOPHILS 1.4 % (0-7); HEMOGLOBIN 12.6 g/dL (13.5-17.5); IMMATURE GRANULOCYTES 0.6 % (0-5); LYMPHOCYTES 18.4 % (15-50); MCH 31.3 pg (26.0-34.0); MCV 89.6 fL (80.0-100.0); MEAN PLATELET VOLUME 9.9 fL (7.4-10.4); MONOCYTES 14.7 % (2-11); NEUTROPHILS 64.6 % (40-80); RBC 4.02 10x6/uL (4.20-6.10); RDW 13.1 % (11.5-14.5); WBC 7.9 10x3/uL (4.8-10.8)
[2018-10-27 04:32] LABS: PLATELET COUNT 173 10x3/uL (130-400)
[2018-10-27 05:00] LABS: ALBUMIN 2.8 g/dL (3.4-5.0); BILIRUBIN - TOTAL 0.83 mg/dL (0.2-1.3); CALCIUM 8.3 mg/dL (8.5-10.1); CARBON DIOXIDE 28.8 mmol/L (21.0-32.0); CREATININE - SERUM 1.1 mg/dL (0.6-1.3); POTASSIUM - SERUM 3.8 mmol/L (3.5-5.1)
[2018-10-27 08:56] VITALS: BP 122/71
[2018-10-27 13:34] VITALS: BP 159/76
[2018-10-27 19:56] VITALS: BP 125/86
[2018-10-27 20:00] VITALS: BP 125/86
[2018-10-28] VITALS: BP 126/70
[2018-10-28 05:04] VITALS: BP 116/74
[2018-10-28 05:28] LABS: BASOPHILS 0.1 % (0-2); EOSINOPHILS 0.3 % (0-7); HEMOGLOBIN 12.5 g/dL (13.5-17.5); IMMATURE GRANULOCYTES 0.6 % (0-5); LYMPHOCYTES 10.3 % (15-50); MCH 31.3 pg (26.0-34.0); MCHC 34.7 g/dL (31.0-37.0); MCV 90.2 fL (80.0-100.0); MEAN PLATELET VOLUME 9.5 fL (7.4-10.4); MONOCYTES 9.7 % (2-11); PLATELET COUNT 199 10x3/uL (130-400); RBC 3.99 10x6/uL (4.20-6.10); RDW 13.3 % (11.5-14.5); WBC 7.8 10x3/uL (4.8-10.8)
[2018-10-28 06:04] LABS: ALBUMIN 2.9 g/dL (3.4-5.0); ANION GAP 17.1 mmol/L (8-16); BILIRUBIN - TOTAL 0.81 mg/dL (0.2-1.3); CALCIUM 8.3 mg/dL (8.5-10.1); CARBON DIOXIDE 25.1 mmol/L (21.0-32.0); CREATININE - SERUM 1.3 mg/dL (0.6-1.3); POTASSIUM - SERUM 4.2 mmol/L (3.5-5.1); PROTEIN - SERUM 7.3 g/dL (6.4-8.2)
[2018-10-28 09:12] VITALS: BP 178/67
[2018-10-28 12:58] VITALS: BP 128/86
[2018-10-28 15:15] LABS: APPEARANCE CLEAR (CLEAR); COLOR YELLOW (YELLOW); GLUCOSE NEGATIVE (NEGATIVE); KETONE NEGATIVE (NEGATIVE); NITRITE NEGATIVE (NEGATIVE); PROTEIN NEGATIVE (NEGATIVE)
[2018-10-28 15:16] LABS: BILIRUBIN 1+ (NEGATIVE)
[2018-10-28 15:17] LABS: BACTERIA MODERATE /hpf (NONE SEEN); RED CELLS - URINE 0-5 /hpf (0-5); WHITE CELLS - URINE 0-5 /hpf (0-5)
[2018-10-28 19:00] VITALS: BP 141/70
[2018-10-29 00:58] VITALS: BP 124/77
[2018-10-29 05:21] LABS: BASOPHILS 0.3 % (0-2); EOSINOPHILS 1.3 % (0-7); HEMATOCRIT 32.4 % (42.0-54.0); HEMOGLOBIN 11.3 g/dL (13.5-17.5); IMMATURE GRANULOCYTES 1.7 % (0-5); LYMPHOCYTES 20.7 % (15-50); MCHC 34.9 g/dL (31.0-37.0); MCV 88.8 fL (80.0-100.0); MEAN PLATELET VOLUME 8.9 fL (7.4-10.4); MONOCYTES 19.7 % (2-11); NEUTROPHILS 56.3 % (40-80); PLATELET COUNT 182 10x3/uL (130-400); RBC 3.65 10x6/uL (4.20-6.10); RDW 13.3 % (11.5-14.5); WBC 6.1 10x3/uL (4.8-10.8)
[2018-10-29 05:44] VITALS: BP 130/67
[2018-10-29 05:45] LABS: ALBUMIN 2.6 g/dL (3.4-5.0); ANION GAP 15.3 mmol/L (8-16); BILIRUBIN - TOTAL 0.67 mg/dL (0.2-1.3); CALCIUM 8.5 mg/dL (8.5-10.1); CARBON DIOXIDE 24.6 mmol/L (21.0-32.0); CREATININE - SERUM 1.3 mg/dL (0.6-1.3); POTASSIUM - SERUM 3.9 mmol/L (3.5-5.1); PROTEIN - SERUM 6.7 g/dL (6.4-8.2)
[2018-10-29 08:22] LABS: LUPUS - INTERPRETATION Comment: (()); LUPUS - THROMBIN TIME 13.7 sec (0.0-23.0); LUPUS - dRVVT 49.9 sec (0.0-47.0); PTT-LA 44.3 sec (0.0-51.9)
[2018-10-29 10:33] LABS: % SATURATION 10 % (15-55); IRON 23 ug/dl (35-150); TOTAL IRON BIND CAPACITY 228 ug/dl (260-445); UNSAT IRON BIND CAPACITY 205 ug/dl (150-375)
[2018-10-29] MEDS ORDERED: CYCLOBENZAPRINE10 MG PO (15:11)
[2018-10-29] MEDS ORDERED: Duragesic TRANSDERM (15:11)
[2018-10-29] MEDS ORDERED: NORCO-10 PO (15:11)
[2018-10-29] MEDS ORDERED: LOVENOX INJ100 MG/ML SC (15:11)
[2018-10-29] MEDS ORDERED: ONDANSETRON4 MG/2 M3 IV (15:11)
[2018-10-29] MEDS ORDERED: MUCINEX600 MG PO (15:11)
[2018-10-29] MEDS ORDERED: VANCOMYCIN 1 GM/1 G1 IV (15:11)
[2018-10-29] MEDS ORDERED: Bactroban ointment NASAL (15:11)
[2018-10-29] MEDS ORDERED: COLACE100 MG PO (15:11)
[2018-10-29] MEDS ORDERED: TESSALON PERLE100 MG PO (15:11)
[2018-10-29] MEDS ORDERED: MIRALAX17 GM PO (15:11)
[2018-10-29] MEDS ORDERED: Levaquin PREMIX IV (15:11)
[2018-10-29] MEDS ORDERED: DILAUDID2 MG PO (15:11)
[2018-10-29] MEDS ORDERED: NYSTATIN1 PWD TOPICAL (15:11)
[2018-10-29] MEDS ORDERED: PROTONIX40 MG PO (15:11)
[2018-10-29] MEDS ORDERED: CALMOSEPTINE OI71 GM TOPICAL (15:11)
[2018-10-29] MEDS ORDERED: Bactroban ointment TOPICAL (15:11)
[2018-10-29] MEDS ORDERED: TUMS PO (15:11)
[2018-10-29] MEDS ORDERED: XOPENEX 1.1.25 MG/3 UPD (15:11)
[2018-11-01 22:07] LABS: FACTOR II DNA ANALYSIS Negative (())
== END 2018-10-29 18:46 | disposition short-term general hospital (02) | DRG 963 ==
LOC: D.ER 12:52 → D.MS 13:55 → OBSVTIME 13:55 → D.EDHOLD 13:55 → D.MS 14:28
PROVIDERS: Family Medicine; Internal Medicine Hematology & Oncology; Internal Medicine Nephrology
DX: S22.089A Unspecified fracture of T11-T12 vertebra, initial encounter for closed fracture (principal); I26.99 Other pulmonary embolism without acute cor pulmonale; S32.302A Unspecified fracture of left ilium, initial encounter for closed fracture; S36.899A Unspecified injury of other intra-abdominal organs, initial encounter; S32.592A Other specified fracture of left pubis, initial encounter for closed fracture; I82.4Z2 Acute embolism and thrombosis of unspecified deep veins of left distal lower extremity; L03.115 Cellulitis of right lower limb; W17.89XA Other fall from one level to another, initial encounter; Y92.009 Unspecified place in unspecified non-institutional (private) residence as the place of occurrence of the external cause; K21.9 Gastro-esophageal reflux disease without esophagitis

== ENCOUNTER → 2018-11-24 13:54 | Outpatient (CLI) | payer MEDICARE, OTHER ==
[2018-10-25 17:26] VITALS: BMI 29.5
[~2018-11-24 13:54] MED LIST changes: +BACTRIM DS1 TAB PO; +Bactroban ointment NASAL; +Bactroban ointment TOPICAL; +CALMOSEPTINE OI71 GM TOPICAL; +COLACE100 MG PO; +CYCLOBENZAPRINE10 MG PO; +DESERYL50 M2 PO; +DILAUDID2 MG PO; +DOXYCYCLINE HY100 M2 PO; +Duragesic TRANSDERM; +ELIQUIS5 MG PO; +LOVENOX INJ100 MG/ML SC; +Levaquin PREMIX IV; +MIRALAX17 GM PO; +MUCINEX600 MG PO; +NORCO-10 PO; +NORCO-7.5 PO; +NYSTATIN1 PWD TOPICAL; +ONDANSETRON4 MG/2 M3 IV; +TESSALON PERLE100 MG PO; +TUMS PO; +TUMS X-STR300 MG PO; +VANCOMYCIN 1 GM/1 G1 IV; +XOPENEX 1.1.25 MG/3 UPD
== END | disposition home or self-care (01) ==
LOC: D.US 11-23 13:00
DX: R60.0 Localized edema (principal); Z86.718 Personal history of other venous thrombosis and embolism

== ENCOUNTER 2018-11-24 16:06 | Emergency (ER) | payer MEDICARE, OTHER ==
[~2018-11-24] VITALS: Ht 180.3 cm; Wt 93.2 kg
[~2018-11-24 16:06] MED LIST changes: -DESERYL50 M2 PO; -ELIQUIS5 MG PO
[2018-11-24 16:54] VITALS: Ht 180.3 cm; Wt 93.2 kg
[2018-11-24] MEDS ORDERED: ELIQUIS5 MG PO (17:09)
[2018-11-24] MEDS ORDERED: DESERYL50 M2 PO (17:10)
[2018-11-24 17:40] LABS: BASOPHILS 0.2 % (0-2); EOSINOPHILS 0.5 % (0-7); HEMATOCRIT 37.4 % (42.0-54.0); HEMOGLOBIN 12.4 g/dL (13.5-17.5); IMMATURE GRANULOCYTES 0.5 % (0-5); LYMPHOCYTES 23.7 % (15-50); MCH 30.2 pg (26.0-34.0); MCHC 33.2 g/dL (31.0-37.0); MEAN PLATELET VOLUME 8.9 fL (7.4-10.4); NEUTROPHILS 68.1 % (40-80); PLATELET COUNT 208 10x3/uL (130-400); RBC 4.11 10x6/uL (4.20-6.10); RDW 13.9 % (11.5-14.5); WBC 6.3 10x3/uL (4.8-10.8)
[2018-11-24 17:53] LABS: APTT 30.5 SECONDS (22.8-39.4); INR 1.04 (0.85-1.17); PROTIME 13.1 SECONDS (11.6-15.0)
[2018-11-24 17:56] LABS: ALBUMIN 3.7 g/dL (3.4-5.0); ANION GAP 15.4 mmol/L (8-16); BILIRUBIN - TOTAL 0.36 mg/dL (0.2-1.3); CALCIUM 9.2 mg/dL (8.5-10.1); CARBON DIOXIDE 24.5 mmol/L (21.0-32.0); CREATININE - SERUM 1.1 mg/dL (0.6-1.3); POTASSIUM - SERUM 3.9 mmol/L (3.5-5.1); PROTEIN - SERUM 7.9 g/dL (6.4-8.2)
[2018-11-24 19:36] VITALS: BP 138/79
== END 2018-11-24 19:36 | disposition other institution (70) ==
LOC: D.ER 16:06
PROVIDERS: Family Medicine
DX: I82.402 Acute embolism and thrombosis of unspecified deep veins of left lower extremity (principal); Z79.01 Long term (current) use of anticoagulants

== ENCOUNTER → 2019-07-01 08:09 | Outpatient (CLI) | payer MEDICARE, OTHER ==
[2018-11-24 16:54] VITALS: BMI 28.6
[~2019-07-01 08:09] MED LIST changes: +DESERYL50 M2 PO; +ELIQUIS5 MG PO
== END | disposition home or self-care (01) ==
LOC: D.US 08:09
PROVIDERS: ATTEND Family Medicine
DX: R10.30 Lower abdominal pain, unspecified (principal); Z86.718 Personal history of other venous thrombosis and embolism